=== PATIENT | male | born 2000 | race Hispanic/Latino ===

== ENCOUNTER 2024-01-09 22:31 | Emergency (ER) | payer SELFPAY ==
[2024-01-09 22:33] VITALS: BP 144/80
--- NOTE | 2024-01-10 01:08 | ED.GENMED ---
History of Present Illness
General
Chief Complaint: Headache
Source: patient
Exam Limitations: none
Time Seen by Provider: 01/10/24 01:00
Nursing documentation reviewed up to this point in time: agreed with
History of Present Illness
History of Present Illness:
23-year-old male with no reported chronic medical issues presents to the emergency room for evaluation of headache. Patient reports onset of symptoms 3 days ago and they have been waxing waning since then. He reports mainly frontal headache. She
describes a throbbing sensation. No clear triggering or relieving factors noted. He denies any trauma. He denies any neck pain or stiffness. Denies any fevers or chills. He denies any nausea, vomiting. He denies any photosensitivity. Denies
any eye pain or vision changes. He denies similar symptoms in the past. He has not taken any medications to help with his headache.
Review of Systems
Review of Systems
All Other Systems: ROS reviewed and negative except as documented in HPI and ROS
Constitutional: Denies fever or chills
EENT: Denies sore throat or runny nose
Respiratory: Denies cough or trouble breathing
Cardiac: Denies chest pain
ABD/GI: Denies abdominal pain, nausea or vomiting
: Denies flank pain
Musculoskeletal: Denies neck pain or back pain
Neurological: Reports headache; Denies dizzy, weakness or numbness
Phy Exam
Physical Exam
Physical Exam:
General: Awake, alert, oriented x3; no acute distress
Head: Normocephalic, atraumatic, no sinus tenderness
Eyes: Conjunctiva normal, EOMI, pupils equal round and reactive to light bilaterally
Throat: Airway intact, handling secretions
Neck: Trachea midline, supple without meningismus, full range of motion in the cervical spine without pain
Lungs: Breathing comfortably with no distress
Heart: Regular rate
Neuro: Cranial nerves intact 2 through 12, speech fluid no dysarthria or aphasia, no limb ataxia, motor and sensory function intact proximally and distally in the upper and lower extremities, ambulatory
Skin: no rash
Extremities: No edema in extremities, warm and well-perfused
Scores
Heart Failure Risk
Heart Failure Risk Score: Not Applicable
Heart Score for Chest Pain Patients
STEMI patient?: Not applicable
Withdrawal Assessment of Alcohol
Withdrawal Assessment Completed?: Not applicable
Course
Orders/Labs/Results
Orders:
Orders
01/10/24 01:06
Ketorolac [Toradol] 30 mg IM NOW STA
01/10/24 01:08
CT Head W/o Iv Contrast Urgent
Comment:
Reason For Exam: persistent headache
Vital Signs
Initial and Last Documented VS:
Initial Vital Signs
Temp Pulse Resp BP Pulse Ox
36.6 C 72 22 144/80 100
01/09/24 22:33 01/09/24 22:33 01/09/24 22:33 01/09/24 22:33 01/09/24 22:33
Last Documented Vital Signs
Temp Pulse Resp BP Pulse Ox
36.6 C 72 22 144/80 100
01/09/24 22:33 01/09/24 22:33 01/09/24 22:33 01/09/24 22:33 01/09/24 22:33
MDM/Problems Addressed
Differential Diagnosis Includes:
Tension headache, migraine headache, dehydration, sinus headache, brain mass; less likely subarachnoid hemorrhage with no thunderclap headache and mild to moderate intensity, waxing waning symptoms
MDM/Problems Addressed:
23-year-old male presents for evaluation of waxing waning headache x 3 days. No trauma. No similar symptoms in the past. He has not taken any medications for his headache. Vitals and exam as above. With new onset headache without similar
symptoms in the past will check CT head. Will treat with Toradol. Reassess after the above.
CT negative for acute pathology. Likely tension headache. Improved with Toradol. Discharge.
*Radiology
Radiology exam reviewed: radiology read reviewed
*Pulse Oximetry
Patient hypoxic: no
*Critical Care Note
Total Time (30-74mins, 75-104mins- exclusive of procedures): Not Applicable
Data Reviewed
Source: patient
ED Attending Note
-
Portions of this chart may have been created with voice recognition software.� Occasional wrong word or��sound alike� substitutions may have occurred due to the inherent limitations of voice recognition software.
Discharge Plan
Departure
Patient Disposition: Home (Routine Discharge)
Date of Disposition: 01/10/24
Time of Disposition: 02:02
Patient with high blood pressure during this ER visit?: No
Discharge Problem:
Headache
Instructions: Headache, Adult (DC)
Referrals:
[facility] [Outside] - Call in 1-3 days for appt
Activity Restrictions/Additional Instructions:
Take Tylenol and Motrin as needed to help with your headache�you can take 400 mg of ibuprofen every 6 hours and 500 mg of Tylenol every 6 hours. Make sure you are drinking plenty of fluids. Follow-up in medical clinic if your symptoms persist.
Lomas Tylenol y Motrin seg�n sea necesario para aliviar el dolor de selina; puede cecile 400 mg de ibuprofeno cada 6 horas y 500 mg de Tylenol cada 6 horas. Aseg�rese de beber muchos l�quidos. Seguimiento en cl�omaira m�dica si dipika s�ntomas persisten.
Thank you for visiting the Emergency Department at [facility].
1. Please schedule a follow up appointment as directed. Call first thing tomorrow morning to make an appointment.
2. If indicated, please take your medications as instructed and indicated on discharge paperwork.
3. If any of your symptoms do not improve, or persist, or become more severe within 6-12 hours, please return to the emergency department for further care.
4. Please return to the emergency department if you develop a headache, neck pain/stiffness, fever greater than 100.4F, chest pain, shortness of breath, persistent nausea, vomiting, slurred speech, difficulty walking, numbness/tingling, weakness,
signs of infection or any other symptoms that are worrisome to you.
Please call [phone] if you have any questions.
Interventions
Interventions:
*Risk Screen - Suicide Last Done: 01/09/24 22:34
*Neglect/Abuse Screening Last Done: 01/09/24 22:33
Discharge Date and Time
Print Language: CENTRAL AFRICAN
[2024-01-10] MEDS: TORADOL 30 MG IM (01:14)
== END 2024-01-10 02:28 | disposition home or self-care (01) ==
LOC: EMR 22:31
PROVIDERS: EMERGENCY PHYSICIAN Emergency Medicine
DX: R51.9 Headache, unspecified (principal)
CPT/HCPCS: 99284; 96372; 70450